=== PATIENT | male | born 1995 | race African-American/Black ===

== ENCOUNTER 2023-12-18 23:54 | Emergency (ER) | payer MEDICAID, SELFPAY ==
--- NOTE | ~2023-12-18 | XR_ITS ---
Thoracic spine: Clinical Indication: Back pain AP and lateral views were performed. No fracture is seen. There is normal alignment of the vertebrae. The intervertebral disc spaces appe ar normal. Paravertebral soft tissues appear normal. Impression: No significant abnormalities noted. Reviewed, dictated and finalized at [facility]. DENCE DIRECTOR Impression: No significant abnormalities noted.
[2023-12-18 23:56] VITALS: BP 115/62; PULSE 67; RESP 15; TEMP 36.5; O2SAT 100
[2023-12-19] VITALS: BP 115/62; PULSE 67; RESP 15; TEMP 36.5; O2SAT 100
[2023-12-19 00:55] LABS: Basophils Percent Auto 0.7 % (0.2-1.2); Eosinophils Absolute Auto 0.1 K/mm3 (0-0.3); Eosinophils Percent Auto 2.3 % (0-4.4); Hematocrit 40.3 % (42.0-52.0); Hemoglobin 12.7 g/dL (14.0-18.0); Immature Granulocyte Absolute 0.01 K/mm3 (0.00-0.031); Immature Granulocyte Percent A 0.2 % (0-0.5); Lymphocytes Absolute Auto 1.72 K/mm3 (0.9-3.2); Lymphocytes Percent Auto 30.4 % (18.3-44.2); Mean Corpuscular HGB Conc 31.5 g/dl (32-36); Mean Corpuscular Hemoglobin 32.2 pg (26-34); Mean Platelet Volume 9.1 fl (7.4-10.4); Monocytes Absolute Auto 0.4 K/mm3 (0.1-0.6); Monocytes Percent Auto 7.4 % (2.6-8.5); Neutrophils Absolute Auto 3.3 K/mm3 (1.3-6.7); Platelet Count Result 307 k/mm3 (150-375); Red Blood Count 3.95 M/mm3 (4.6-6.20); Red Cell Distribution Width 11.9 % (11.5-14.5); White Blood Count 5.7 K/mm3 (4.5-10.0)
[2023-12-19 01:05] LABS: Alanine Aminotransferase 22 U/L (6-50); Albumin Level 4.5 g/dL (3.5-5.1); Alkaline Phosphatase 53 U/L (38-126); Anion Gap 6 mmol/L (8-16); Aspartate Amino Transferase 32 U/L (17-59); Bilirubin,Total 0.7 mg/dL (0.2-1.3); Blood Urea Nitrogen 11 mg/dL (9-20); Calcium 9.7 mg/dL (8.4-10.2); Carbon Dioxide 30 mmol/L (22-30); Chloride 105 mmol/L (98-107); Estimated CRCL calculation 99 ml/min; Estimated Glomerular Filt Rate > 60; Ethanol < 10 mg/dL (<10); Glucose 85 mg/dL (65-110); Potassium 3.7 mmol/L (3.4-5.0); Sodium 141 mmol/L (137-145)
[2023-12-19 01:35] LABS: Influenza A QL RT-PCR Negative (Negative); Influenza B QL RT-PCR Negative (Negative); RSV RNA, RT-PCR Negative (Negative); SARS-CoV-2 RNA PCR Negative (Negative); Thyroid Stimulating Hormone Reflex 0.695 uIU/mL (0.465-4.68)
[2023-12-19 01:39] LABS: Appearance Urine Clear (Clear); Bilirubin Urine Negative (Negative); Blood Urine Negative (Negative); Color Urine Yellow (Yellow); Glucose Urine UA Negative (Negative); Ketones Urine Negative (Negative); Leukocyte Esterase Ur Negative LEU/UL (Negative); Nitrate Urine Negative (Negative); Protein Urine Negative (Negative)
[2023-12-19 01:41] LABS: Add Urine Microscopic? NO
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
[2023-12-19] MEDS: ACETAMINOPHEN 500 MG TABLET 1000 MG PO (01:58)
[2023-12-19] MEDS: IBUPROFEN 600 MG TABLET PO (01:59)
[2023-12-19 02:08] LABS: Amphetamine Screen Urine Negative (Negative); Barbiturate Screen Urine Negative (Negative); Benzodiazepines Screen Urine Negative (Negative); Cannabinoid Screen Urine Negative (Negative); Cocaine Screen Urine Negative (Negative); Methadone Screen Urine Negative (Negative); Opiate Screen Urine Negative (Negative); Phencyclidine Screen Urine Negative (Negative)
--- NOTE | 2023-12-19 03:25 | PC.NURSE ---
Called Crisis for consultation with no answer.
== END 2023-12-19 07:24 | disposition home or self-care (01) ==
PROVIDERS: Emergency Provider Student in an Organized Health Care Education/Training Program
DX: R45.851 Suicidal ideations (principal); D53.9 Nutritional anemia, unspecified; M54.6 Pain in thoracic spine; Z11.52 Encounter for screening for COVID-19; Z59.00 Homelessness unspecified; F20.9 Schizophrenia, unspecified; J45.909 Unspecified asthma, uncomplicated
CPT/HCPCS: 36415; 72070; 80053; 80307; 81003; 84443; 85025; 87637; 99284; A9270

== ENCOUNTER 2023-12-23 01:15 | Emergency (ER) | payer MEDICAID, SELFPAY ==
[2023-12-23 01:21] VITALS: BP 107/71; PULSE 80; RESP 16; TEMP 36.3; O2SAT 100
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
--- NOTE | 2023-12-23 02:45 | PC.NURSE ---
Patient arrived in ED wearing boots and hospital socks. Bilateral boots and socks taken off of patient's feet. White, pruney appearance to toes on both feet. Small wounds on left foot fourth and fifth toes, and large corn to first toe on left foot. No drainage, redness, swelling, or fever. Toes tender to touch. Patient asked this RN if he would be able to take a shower. toilet and laundry soap supervisor made aware.
[2023-12-23 03:49] VITALS: BP 110/64; PULSE 77; RESP 14; O2SAT 97
== END 2023-12-23 03:53 | disposition home or self-care (01) ==
PROVIDERS: Emergency Provider Emergency Medicine
DX: M79.672 Pain in left foot (principal); Z59.02 Unsheltered homelessness; J45.909 Unspecified asthma, uncomplicated
CPT/HCPCS: 99283

== ENCOUNTER 2024-01-29 20:13 | Emergency (ER) | payer MEDICAID, SELFPAY ==
--- NOTE | ~2024-01-29 | XR_ITS ---
EXAMINATION: XR lumbar spine 2-3V, XR thoracic spine 3V DATE: 01/29/2024 21:55 INDICATION: Back pain TECHNIQUE: 1. AP, lateral and lateral swimmer's views of the thoracic spine were obtained. 2. Anteroposterior and lateral views of the lumbar spine, and cone-down lateral view of the lumbosacr al junction were obtained. COMPARISON: Thoracic spine radiographs dated 12/19/2023 FINDINGS: Thoracic spine: Alignment is normal. Chronic mild anterior wedging of a midthoracic vertebral body, likely T6 and min imal anterior wedging at what is likely T7. Mild disc height loss at T3-T4 and T5-T6 through T8-T9. V isualized portion of the lungs are clear with no pleural effusion or pneumothorax. Cardiomediastinal silhouette is normal. Lumbar spine: A degree lumbar dextrocurvature. Sagittal alignment is normal. Minimal likely physiologic anterior we dging at T12 and L1. Disc heights are normal. Mild osteoarthritis at the bilateral sacral iliac joint s. IMPRESSION: 1. Mild thoracic spondylosis with chronic minimal to mild anterior wedging of a few mid and lower tho racic vertebral bodies. 2. 8 degree lumbar dextrocurvature 3. Mild bilateral sacroiliac osteoarthritis. Reviewed, dictated and finalized at location A. IMPRESSION: 1. Mild thoracic spondylosis with chronic minimal to mild anterior wedging of a few mid and lower thoracic vertebral bodies. 2. 8 degree lumbar dextrocurvature 3. Mild bilateral sacroiliac osteoarthritis.
[2024-01-29 20:15] VITALS: BP 130/75; PULSE 67; RESP 20; TEMP 36.3; O2SAT 99
--- NOTE | 2024-01-29 21:33 | ED.BACK ---
HPI - Back Pain/Injury General Chief Complaint: Back Pain/Injury Stated Complaint: back pain for 1 year Time Seen by Provider: 01/29/24 21:22 Source: patient Mode of arrival: ambulatory Limitations: no limitations History of Present Illness HPI Narrative: This is a 28 year old male that presents to the ER for mid to low back pain. No recent injuries or trauma. He has not taken anything for pain. Pain started earlier tonight. Denies numbness or weakness. Related Data Allergies Allergy/AdvReac Type Severity Reaction Status Date / Time shrimp Allergy Unknown Verified 01/29/24 20:19 Review of Systems Review of Systems: CONSTITUTIONAL: Denies fever SKIN: Denies rash MUSCULOSKELETAL: Reports back pain, joint pain, and myalgia. NEUROLOGIC: Denies numbness, or weakness. All systems reviewed & are unremarkable except as noted in HPI and below PMFSH Past Medical History Medical History Asthma Schizophrenia Social History Social History Other substance usage details: denies IVDU Current Housing: I Do Not Have Housing Exam Narrative: GENERAL: Well-appearing, well-nourished, and in no acute distress. HEAD: Normocephalic, atraumatic. EYES: EOMI. CHEST: Clear to auscultation. No respiratory distress. No wheezes rales or rhonchi HEART: Regular rate and rhythm. No murmur heard. Normal peripheral pulses. BACK: No midline spinal tenderness EXTREMITIES: Normal range of motion. No edema. SKIN: Warm, dry, no rash. NEURO: No focal deficits. Alert and oriented x3. Normal gait PSYCH: Normal mood and affect Course Course Emergency Course: Patient updated on workup and agrees with plan of care Vital Signs Vital signs: Vital Signs Temperature 97.4 F L 01/29/24 20:15 Pulse Rate 67 01/29/24 20:15 Respiratory Rate 01/29/24 20:15 Blood Pressure 130/75 01/29/24 20:15 Pulse Oximetry 99 01/29/24 20:15 Oxygen Delivery Room Air 01/29/24 20:15 Temperature 97.4 F L 01/29/24 20:15 Pulse Rate 67 01/29/24 20:15 Respiratory Rate 01/29/24 20:15 Blood Pressure 130/75 01/29/24 20:15 Pulse Oximetry 99 01/29/24 20:15 Oxygen Delivery Room Air 01/29/24 20:15 MDM - Back Pain/Injury MDM Narrative Medical decision making narrative: Patient presents to the emergency department for middle low back pain ongoing today. No recent injuries or trauma. Patient is neurologically intact. X-rays of the thoracic and lumbar spine show mild thoracic spondylosis, 8 degree lumbar dextrocurvature. Mild bilateral sacroiliac osteoarthritis. Patient was updated on his workup and agrees with plan of care. Instructed to rest, use ice/heat, continue [id number] pain medication as needed. He is to follow up with primary provider. He was given warnings to return to the ER Differential Diagnosis Differential diagnosis: Likely sciatica, strain of lumbar region, thoracic back pain and other (muscle spasm) Imaging Data Radiologist's impression: ITS Impressions Lumbar Spine X-Ray 01/29/24 22:04 IMPRESSION: 1. Mild thoracic spondylosis with chronic minimal to mild anterior wedging of a few mid and lower thoracic vertebral bodies. 2. 8 degree lumbar dextrocurvature 3. Mild bilateral sacroiliac osteoarthritis. Thoracic Spine X-Ray 01/29/24 22:04 IMPRESSION: 1. Mild thoracic spondylosis with chronic minimal to mild anterior wedging of a few mid and lower thoracic vertebral bodies. 2. 8 degree lumbar dextrocurvature 3. Mild bilateral sacroiliac osteoarthritis. Critical Care Time Critical Care Time Critical Care Time: No Discharge Plan Discharge Clinical Impression: Back pain Qualifiers: Back pain location: thoracic back pain Chronicity: acute Back pain laterality: midline Qualified Code(s): M54.6 - Pain in thoracic spine Patient Disposition: Home, Self-Care C
[2024-01-29] MEDS: ACETAMINOPHEN 500 MG TABLET 1000 MG PO (21:38)
[2024-01-29 22:26] VITALS: BP 126/95; PULSE 68; RESP 16; O2SAT 98
== END 2024-01-29 22:27 | disposition home or self-care (01) ==
PROVIDERS: Emergency Provider Physician Assistant
DX: M54.6 Pain in thoracic spine (principal); J45.909 Unspecified asthma, uncomplicated; M47.814 Spondylosis without myelopathy or radiculopathy, thoracic region; M46.1 Sacroiliitis, not elsewhere classified
CPT/HCPCS: 72072; 72100; 99283; A9270

== ENCOUNTER 2024-03-14 22:43 | Emergency (ER) | payer MEDICAID, SELFPAY ==
[2024-03-14 22:44] VITALS: BP 125/82; PULSE 79; RESP 18; TEMP 36.3; O2SAT 100
--- NOTE | 2024-03-14 22:55 | PC.NURSE ---
pt provided with sandwich, chips, peaches and drink at this time.
[2024-03-15 01:13] VITALS: BP 100/60; PULSE 63; RESP 16; O2SAT 98
[2024-03-15 01:56] LABS: Influenza A QL RT-PCR Negative (Negative); Influenza B QL RT-PCR Negative (Negative); RSV RNA, RT-PCR Negative (Negative); SARS-CoV-2 RNA PCR Negative (Negative)
--- NOTE | 2024-03-15 02:27 | ED.GENADULT ---
HPI - General Adult General Chief complaint: Upper Respiratory Infection Stated complaint: cough, homeless and hungry - ems request lizet Time Seen by Provider: 03/15/24 02:24 History of Present Illness HPI narrative: Patient is a 28-year-old male who presents to the emergency department this morning complaining a cough and URI symptoms. Patient admits that he has had this cough for a week and does admit that his symptoms are improving every day. He admitted to triage nurse that he is homeless and wants some food. He is currently denying any additional symptoms including fevers, chills, chest pain or shortness of breath. No additional symptoms or concerns at this time. Related Data Allergies Allergy/AdvReac Type Severity Reaction Status Date / Time shrimp Allergy Unknown Verified 01/29/24 20:19 Review of Systems Review of Systems: All systems are reviewed and are negative unless stated otherwise in the HPI. [facility] Past Medical History Medical History Asthma Schizophrenia Social History Social History Other substance usage details: denies IVDU Current Housing: I Do Not Have Housing Exam Narrative: General: Alert, awake, afebrile, in no acute distress. HEENT: PERRL, no rhinorrhea, no post nasal drip, oropharynx clear. Neck: Trachea midline, no JVD, no lymphadenopathy. Cardiovascular: Regular rate and rhythm, no murmurs, rubs or gallops, no peripheral edema. Respiratory: Clear to auscultation bilaterally, no tachypnea, no wheezing, no rhonchi, no rubs, no respiratory distress. Abdomen: Soft, nontender, nondistended, no rebound, no guarding, no peritoneal signs. Musculoskeletal: No joint swelling or deformity, normal muscle tone. Skin: No rashes or petechia, no signs of infection. Psychiatric: Alert and oriented, normal behavior and judgment for situation. Neurological: Alert and oriented to person, place, and time. Follows all commands. No focal deficits, speech is clear and fluent. Course Vital Signs Vital signs: Vital Signs Temperature 97.4 F L 03/14/24 22:44 Pulse Rate 79 03/14/24 22:44 Respiratory Rate 18 03/14/24 22:44 Blood Pressure 125/82 03/14/24 22:44 Pulse Oximetry 100 03/14/24 22:44 Oxygen Delivery Room Air 03/14/24 22:44 Temperature 97.4 F L 03/14/24 22:44 Pulse Rate 63 03/15/24 01:13 Respiratory Rate 16 03/15/24 01:13 Blood Pressure 100/60 03/15/24 01:13 Pulse Oximetry 98 03/15/24 01:13 Oxygen Delivery Room Air 03/15/24 01:13 Medical Decision Making MDM Narrative Medical decision making narrative: The patient was evaluated by myself in the emergency department. History is obtained from patient who is an independent historian and physical exam was performed. External medical records were reviewed at this time. Vitals was obtained were noted to be negative for influenza, RSV and COVID. Differential diagnosis considerations include acute viral syndrome including COVID/influenza and infectious process such as pneumonia. Comorbidities impacting this visit include none I have evaluated and discussed social determinants of health with the patient that could potentially impact subsequent diagnosis and treatment plans. On repeat assessment of the patient, reevaluation revealed that the patient is doing well and is in no acute distress. Patient symptoms have remained stable since he arrived to our emergency department. Patient was provided with food. Repeat vital signs were all reviewed and noted to be stable. Differential diagnosis and treatment plan were discussed with the patient at bedside. Patient agrees with discussion and after shared medical decision making agrees with discharge. All questions were answered to the patient's satisfaction. Patient will follow up with the PCP provided to him in 3-5 days. Patient was provided wi
== END 2024-03-15 02:39 | disposition home or self-care (01) ==
PROVIDERS: Physician Assistant; Emergency Provider Emergency Medicine
DX: J06.9 Acute upper respiratory infection, unspecified (principal); Z20.822 Contact with and (suspected) exposure to COVID-19; J45.909 Unspecified asthma, uncomplicated; F20.9 Schizophrenia, unspecified; Z59.02 Unsheltered homelessness
CPT/HCPCS: 87637; 99283

== ENCOUNTER 2024-03-20 02:00 | Emergency (ER) | payer MEDICAID, SELFPAY ==
[2024-03-20 01:59] VITALS: BP 105/76; PULSE 60; RESP 18; TEMP 37; O2SAT 100
--- NOTE | 2024-03-20 02:12 | ED.URI ---
HPI - URI/Sore Throat General Chief Complaint: Upper Respiratory Infection Stated Complaint: cough Time Seen by Provider: 03/20/24 02:06 History of Present Illness HPI Narrative: Patient presenting with cough, has been ongoing for few days, he is homeless and has come in here just a few days ago for the same thing. Denies other complaints Related Data Allergies Allergy/AdvReac Type Severity Reaction Status Date / Time shrimp Allergy Unknown Verified 01/29/24 20:19 Review of Systems Review of Systems: All systems reviewed & are unremarkable except as noted in HPI and below PMFSH Past Medical History Medical History Asthma Schizophrenia Social History Social History Other substance usage details: denies IVDU Current Housing: I Do Not Have Housing Exam Narrative: EXAMINATION OF ORGAN SYSTEMS/BODY AREAS: Constitutional: Vital signs per nursing GENERAL:[No acute distress, non-toxic appearing.] HEAD: Normal with no signs of head trauma. EYES: EOMI, conjunctiva normal ENT: Hearing grossly intact LUNGS: Nonlabored breathing. HEART: [Regular rate and rhythm] ABD: [Soft], [nontender to palpation] EXT: Normal range of motion SKIN: [No rashes or lesions.] NEURO: [Alert and oriented x 3. No gross focal sensory or strength deficits.] PSYCH: Normal affect Course Vital Signs Vital signs: Vital Signs Temperature 98.6 F 03/20/24 01:59 Pulse Rate 60 03/20/24 01:59 Respiratory Rate 18 03/20/24 01:59 Blood Pressure 105/76 03/20/24 01:59 Pulse Oximetry 100 03/20/24 01:59 Oxygen Delivery Room Air 03/20/24 01:59 Temperature 98.6 F 03/20/24 01:59 Pulse Rate 60 03/20/24 01:59 Respiratory Rate 18 03/20/24 01:59 Blood Pressure 105/76 03/20/24 01:59 Pulse Oximetry 100 03/20/24 01:59 Oxygen Delivery Room Air 03/20/24 01:59 MDM - URI/Sore Throat MDM Narrative Medical decision making narrative: Patient presents with a cough, he is homeless and denies other complaints other than wanting a place to sleep and something to eat, he is well-appearing here, no labored respirations, vital signs are normal, he is PERC negative, I have low concern for serious condition, he has swabs done recently that were normal and I do not feel he has any emergent evaluation or treatment necessary. He is given follow-up to primary care doctor and he can return for any further issues. Discharge Plan Discharge Clinical Impression: Homeless, Cough Patient Disposition: Home, Self-Care Condition: Stable Instructions: Antibiotic Form, Acute Cough (ED) Additional Instructions: Please follow-up with your doctor, you can always return to the ER if you feel worse. Prescriptions: No Action acetaminophen 500 mg capsule 1,000 mg PO Q6H PRN (Reason: pain) Qty: 20 0RF ibuprofen 200 mg capsule 600 mg PO Q8H PRN (Reason: pain) Qty: 20 0RF ibuprofen 800 mg tablet 800 mg PO TID PRN (Reason: pain) 7 Days Qty: 21 0RF acetaminophen 500 mg tablet 1,000 mg PO TID PRN (Reason: cha) 7 Days Qty: 42 0RF Follow-up/Referrals: PHYSICIAN,WELDER EXPERIMENTAL [Primary Care Provider] - Brayan Enamorado MD [Physician] - 2 Days
[2024-03-20 02:58] VITALS: BP 102/72; PULSE 78; RESP 16; O2SAT 99
== END 2024-03-20 02:59 | disposition home or self-care (01) ==
LOC: ANHED 02:18
PROVIDERS: Emergency Provider Emergency Medicine
DX: R05.9 Cough, unspecified (principal); Z59.00 Homelessness unspecified; J45.909 Unspecified asthma, uncomplicated
CPT/HCPCS: 99281

== ENCOUNTER 2024-07-04 23:36 | Emergency (ER) | payer MEDICAID, SELFPAY ==
[2024-07-04 23:42] VITALS: BP 116/74; PULSE 67; RESP 18; TEMP 36.6; O2SAT 100
--- NOTE | 2024-07-05 01:16 | ED.BACK ---
HPI - Back Pain/Injury General Chief Complaint: Back Pain/Injury Stated Complaint: Lower back pain Time Seen by Provider: 07/05/24 01:06 Source: patient and old records reviewed Mode of arrival: EMS Limitations: no limitations History of Present Illness HPI Narrative: Patient is a 28 y/o male, with PMH of schizophrenia, who presents to the ED via EMS with report of back pain. Patient is homeless. Asking for a sandwich. He reports he has had back pain for some time now. Reports remote injury. Has not taken anything for pain. No numbness, bowel or bladder incontinence, saddle anesthesia, urinary complaints. No SI/HI. No psychosis. Reportedly had been on risperidone in the past, but is non-compliant with this. Related Data Allergies Allergy/AdvReac Type Severity Reaction Status Date / Time shrimp Allergy Unknown Verified 01/29/24 20:19 Review of Systems Review of Systems: All systems reviewed & are unremarkable except as noted in HPI. All systems reviewed & are unremarkable except as noted in HPI and below PMFSH Past Medical History Medical History Asthma Schizophrenia Social History Social History Other substance usage details: denies IVDU Current Housing: I Do Not Have Housing Exam Narrative: GENERAL: Mildly unkempt, thin, non-toxic, in no acute distress. Moving easily on stretcher, resting comfortably in multiple different positions. HEAD: Normocephalic, atraumatic. RESPIRATORY: Airway patent, respirations nonlabored. CARDIOVASCULAR: Regular rate and rhythm MUSCULOSKELETAL: Moves all extremities. No gross deformities. Diffuse nonfocal tenderness throughout lumbar and thoracic region. No appreciable midline spinal tenderness. No palpable bony deformities. SKIN: Warm, dry, normal color. NEURO: Alert. Speech clear. Cranial nerves II-XII grossly intact. No ataxic movements. PSYCHIATRIC: slightly flat affect. Normal interaction. Course Vital Signs Vital signs: Vital Signs Temperature 97.9 F 07/04/24 23:42 Pulse Rate 67 07/04/24 23:42 Respiratory Rate 18 07/04/24 23:42 Blood Pressure 116/74 07/04/24 23:42 Pulse Oximetry 100 07/04/24 23:42 Temperature 97.9 F 07/04/24 23:42 Pulse Rate 67 07/04/24 23:42 Respiratory Rate 18 07/04/24 23:42 Blood Pressure 116/74 07/04/24 23:42 Pulse Oximetry 100 07/04/24 23:42 MDM - Back Pain/Injury MDM Narrative Medical decision making narrative: Patient?s pain is positional and localized to paraspinal muscles without signs of cord compression or cauda equina. Normal neurologic exams. No red flag symptoms. No symptoms or signs to suggest pain is referred from abdominal or source. Patient resting comfortably. He is able to move around on stretcher easily. He does not appear in any distress. No significant focal areas of pain on exam. Has been seen in our ED for similar vague back pain several different times. Patient ambulates with a steady gait and is felt to be a reasonable candidate for continued outpatient management. Given Toradol, Tylenol, Flexeril in the ED. Given something to eat. Will be discharged. Will discharge with Tylenol, ibuprofen, lidocaine patches and PCP follow-up. Patient was also given numerous resources on homeless shelters, food pantry, housing assistance. Given return precautions. Discharged in stable condition. Medical Records Attestation: I reviewed the patient's medical records. Discharge Plan Discharge Clinical Impression: Homelessness Strain of lumbar region Qualifiers: Encounter type: initial encounter Qualified Code(s): S39.012A - Strain of muscle, fascia and tendon of lower back, initial encounter Patient Disposition: Home, Self-Care Condition: Stable Instructions: Antibiotic Form, Acute Low Back Pain (ED), Lower Back Exercises (ED) Sincere
[2024-07-05] MEDS: CYCLOBENZAPRINE HCL 5 MG TABLET PO (01:25)
[2024-07-05] MEDS: ACETAMINOPHEN 500 MG TABLET 1000 MG PO (01:25)
[2024-07-05] MEDS: KETOROLAC (*BKC) 60 MG/2 ML VIAL IM (01:25)
== END 2024-07-05 02:40 | disposition home or self-care (01) ==
LOC: ANHED 07-05 01:32
PROVIDERS: Emergency Provider Physician Assistant
DX: S39.012A Strain of muscle, fascia and tendon of lower back, initial encounter (principal); J45.909 Unspecified asthma, uncomplicated; F20.9 Schizophrenia, unspecified; Z59.00 Homelessness unspecified; X58.XXXA Exposure to other specified factors, initial encounter
CPT/HCPCS: 96372; 99283; A9270; J1885

== ENCOUNTER 2025-08-20 13:51 | Emergency (ER) | payer MEDICAID, SELFPAY ==
[2025-08-20 13:51] VITALS: BP 105/62; PULSE 90; RESP 18; TEMP 36.8; O2SAT 100
--- NOTE | 2025-08-20 14:06 | ED_ITS ---
[facility] - General Adult General Chief complaint: Unspecified Stated complaint: illness Time Seen by Provider: 08/20/25 13:54 History of Present Illness HPI narrative: 29-year-old male with history of homelessness and depression presenting to the emergency department via EMS. Patient just states he does not feel well and is depressed. States he has suicidal thoughts. Patient states he has been using meth and alcohol recently but no other recent health concerns. Denies any injuries. States he just does not feel well and wants somebody to talk to about his depression. No definite plan. Related Data Allergies Allergy/AdvReac Type Severity Reaction Status Date / Time shrimp Allergy Unknown Verified 01/29/24 20:19 Review of Systems 2 Review of Systems: As reviewed above in HPI [facility] Past Medical History Medical History Schizophrenia Asthma Social History Social History Other substance usage details: denies IVDU Current Housing: I Do Not Have Housing Exam 2 Narrative: GENERAL: [Well-appearing, well-nourished, and in no acute distress.] HEAD: [Normocephalic, atraumatic.] EYES: [PERRLA and EOMI.] ENT: Nares clear, no rhinorrhea or epistaxis. Mucous membranes moist. NECK: Supple. CHEST: [Clear to auscultation. No respiratory distress.] HEART: [Regular rate and rhythm]. No murmur heard. [Normal peripheral pulses.] ABDOMEN: [Soft, nondistended], [nontender], [No rigidity or guarding] EXTREMITIES: Normal range of motion. [No edema.] SKIN: Warm, dry, no rash. NEURO: [No focal deficits]. Alert and oriented [x3.] PSYCH: Suicidal ideation but no plan. Flat affect Course Vital Signs Vital signs: Vital Signs Temperature 36.8 C 08/20/25 13:51 Pulse Rate 90 08/20/25 13:51 Respiratory Rate 18 08/20/25 13:51 Blood Pressure 105/62 08/20/25 13:51 Pulse Oximetry 100 08/20/25 13:51 Oxygen Delivery Room Air 08/20/25 13:51 Temperature 36.8 C 08/20/25 13:51 Pulse Rate 101 H 10/25/25 16:03 Respiratory Rate 15 08/20/25 16:03 Blood Pressure 115/75 08/20/25 16:03 Pulse Oximetry 100 08/20/25 16:03 Oxygen Delivery Room Air 08/20/25 13:51 Medical Decision Making MDM Narrative Medical decision making narrative: 29-year-old male with history of homelessness and depression presenting to the emergency department via EMS. Patient just states he does not feel well and is depressed. States he has suicidal thoughts. Patient states he has been using meth and alcohol recently but no other recent health concerns. Denies any injuries. States he just does not feel well and wants somebody to talk to about his depression. No definite plan. Patient has an unremarkable physical exam with normal vital signs. He is expressing suicidal thoughts but no plan. Will obtain psychiatric clearance laboratory studies. He has no urgent or emergent concerns based on history or physical exam. Will have crisis evaluate him upon completion of workup. Mild hypokalemia repleted with oral potassium. Otherwise unremarkable labs. Urine drug screen shows methamphetamines and marijuana which he readmitted to. Hemodynamically stable. Medically stable and cleared for psychiatric evaluation and disposition. Crisis has evaluated the patient and he does not need psychiatric hospitalization. Safety plan for discharge. Medical Records Medical records reviewed: Yes I reviewed the external patient's medical records. Vital Signs Vital Signs: Vital Signs Temperature 36.8 C 08/20/25 13:51 Pulse Rate 90 08/20/25 13:51 Respiratory Rate 18 08/20/25 13:51 Blood Pressure 105/62 08/20/25 13:51 Pulse Oximetry 100 08/20/25 13:51 Oxygen Delivery Room Air 08/20/25 13:51 Temperature 36.8 C 08/20/25 13:51 Pulse Rate 101 H 08/20/25 16:03 Respiratory Rate 15 08/20/25 16:03 Blood Pressure 115/75 08/20/25 16:03 Pulse Oximetry 100 08/20/25 16:03 Oxygen Delivery Room Air 08/20/25 13:51 Lab Data Lab results reviewed: Yes I reviewed the patient's lab results. 08/20/25 14:16 08/20/25 14:16 Labs: Lab Results 08/20/25 08/20/25 08/20/25 Range/Units 14:16 14:20 14:54 WBC 6.2 (4.5-10.0) K/mm3 RBC 4.11 L (4.6-6.20) M/mm3 Hgb 13.0 L (14.0-18.0) g/dL Hct 39.3 L (42.0-52.0) % MCV 95.6 (80-100) fl MCH 31.6 (26-34) pg MCHC 33.1 (32-36) g/dl RDW 12.1 (11.5-14.5) % Plt Count 298 (150-375) k/mm3 MPV 8.2 (7.4-10.4) fl Immature Gran % (Auto) 0.3 (0-0.5) % Neut % (Auto) 48.1 (45.5-73.1) % Lymph % (Auto) 40.6 (18.3-44.2) % [place] % (Auto) 7.3 (2.6-8.5) % Eos % (Auto) 3.4 (0-4.4) % Baso % (Auto) 0.3 (0.2-1.2) % Lymph # (Auto) 2.52 (0.9-3.2) K/mm3 [place] # (Auto) 0.5 (0.1-0.6) K/mm3 Eos # (Auto) 0.2 (0-0.3) K/mm3 Baso # (Auto) 0.0 (0.0-0.1) K/mm3 Abs Immat Gran (auto) 0.02 (0.00-0.031) K/mm3 Absolute Neuts (auto) 3.0 (1.3-6.7) K/mm3 Absolute Nucleated RBC 0.000 (0.0-0.012) K/mm3 Nucleated RBC % 0.0 (0.0-0.2) % Sodium 138 (137-145) mmol/L Potassium 3.2 L (3.4-5.0) mmol/L Chloride 100 (98-107) mmol/L Carbon Dioxide 28 (22-30) mmol/L Anion Gap 10 (4-12) mmol/L BUN 13 (9-20) mg/dL Creatinine 0.84 (0.7-1.3) mg/dL Estim Creat Clear Calc 0 ml/min Estimated GFR > 60 (59 - ) Glucose 77 (65-110) mg/dL Calcium 9.0 (8.4-10.2) mg/dL Total Bilirubin 0.7 (0.2-1.3) mg/dL AST 92 H (17-59) U/L ALT 43 (6-50) U/L Alkaline Phosphatase 64 (38-126) U/L Total Protein 7.6 (6.3-8.2) g/dL Albumin 4.3 (3.5-5.1) g/dL TSH (Reflex) 0.503 (0.465-4.68) uIU/mL Urine Color Yellow (Yellow) Urine Appearance Clear (Clear) Urine pH 5.5 (5.0-9.0) Ur Specific [place] 1.017 (1.001-1.035) Urine Protein Negative (Negative) mg/dL Urine Glucose (UA) Negative (Negative) mg/dL Urine Ketones Trace H (Negative) mg/dL Ur Blood (Man) Negative (Negative) Urine Nitrate Negative (Negative) Urine Bilirubin Negative (Negative) Urine Urobilinogen 1.0 (<2.0) mg/dL Add Ur Microanalysis Reviewed Leukocyte Esterase Rfl 1+ H (Negative) SHARONDA/UL Urine RBC 0-2 (0-2) /hpf Urine WBC 0-5 (0-3) /hpf Ur Squamous Epith Cells None seen (Few) /hpf Urine Bacteria None seen /hpf Urine Casts 0-2 Urine Opiates Screen Negative (Negative) Urine Methadone Screen Negative (Negative) Ur Barbiturates Screen Negative (Negative) Ur Phencyclidine Scrn Negative (Negative) Ur Amphetamine Screen Positive A (Negative) U Benzodiazepines Scrn Negative (Negative) Urine Cocaine Screen Negative (Negative) U Cannabinoids Screen Positive A (Negative) Ethyl Alcohol 21 (<10) mg/dL SARS-CoV-2 RNA (RT-PCR) Negative (Negative) Discharge Plan Discharge Clinical Impression: Polysubstance abuse, Suicidal ideation Patient Disposition: Home Condition: Stable Instructions: Antibiotic Form Additional Instructions: Return with any emergent concerns Patient Language: Macedonian Prescriptions: No Action acetaminophen 500 mg capsule 1,000 mg PO Q6H PRN (Reason: pain) Qty: 20 0RF ibuprofen 200 mg capsule 600 mg PO Q8H PRN (Reason: pain) Qty: 20 0RF ibuprofen 800 mg tablet 800 mg PO TID PRN (Reason: pain) 7 Days Qty: 21 0RF acetaminophen 500 mg tablet 1,000 mg PO TID PRN (Reason: cha) 7 Days Qty: 42 0RF ibuprofen 600 mg tablet 600 mg PO Q6H PRN (Reason: pain) Qty: 20 0RF acetaminophen 500 mg capsule 1,000 mg PO Q6H PRN (Reason: pain) Qty: 20 0RF lidocaine 5 % adhesive patch,medicated 1 patch topical DAILY Qty: 15 0RF Rx Instructions: leave on most painful area for up to 12 hrs Follow-up/Referrals: PHYSICIAN,RACETRACK STEWARD [Primary Care Provider, Internal Medicine] Time of Disposition: 17:31
--- NOTE | 2025-08-20 14:15 | PC.NURSE ---
Per EDP pt does not need a sitter
[2025-08-20 14:24] LABS: Hematocrit 39.3 % (42.0-52.0); Hemoglobin 13.0 g/dL (14.0-18.0); Immature Granulocyte Percent A 0.3 % (0-0.5); Lymphocytes Absolute Auto 2.52 K/mm3 (0.9-3.2); Mean Corpuscular HGB Conc 33.1 g/dl (32-36); Mean Corpuscular Hemoglobin 31.6 pg (26-34); Mean Corpuscular Volume 95.6 fl (80-100); Nucleated Red Blood Cells Absolute Auto 0.000 K/mm3 (0.0-0.012); Nucleated Red Blood Cells Perc 0.0 % (0.0-0.2); Platelet Count Result 298 k/mm3 (150-375); Red Blood Count 4.11 M/mm3 (4.6-6.20); White Blood Count 6.2 K/mm3 (4.5-10.0)
[2025-08-20 14:37] LABS: Alanine Aminotransferase 43 U/L (6-50); Albumin Level 4.3 g/dL (3.5-5.1); Alkaline Phosphatase 64 U/L (38-126); Anion Gap 10 mmol/L (4-12); Aspartate Amino Transferase 92 U/L (17-59); Bilirubin,Total 0.7 mg/dL (0.2-1.3); Blood Urea Nitrogen 13 mg/dL (9-20); Calcium 9.0 mg/dL (8.4-10.2); Carbon Dioxide 28 mmol/L (22-30); Chloride 100 mmol/L (98-107); Estimated CRCL calculation 0 ml/min; Estimated Glomerular Filt Rate > 60; Glucose 77 mg/dL (65-110); Potassium 3.2 mmol/L (3.4-5.0); Sodium 138 mmol/L (137-145); Total Protein 7.6 g/dL (6.3-8.2)
[2025-08-20 15:01] LABS: SARS-CoV-2 RNA PCR Negative (Negative)
[2025-08-20 15:08] LABS: Thyroid Stimulating Hormone Reflex 0.503 uIU/mL (0.465-4.68)
[2025-08-20 15:16] LABS: Add Urine Microscopic? YES; Appearance Urine Clear (Clear); Glucose Urine UA Negative (Negative); Leukocyte Esterase Ur 1+ LEU/UL (Negative); Need Manual Microscopic Reviewed; Nitrate Urine Negative (Negative); Non Pathogenic Casts 0-2; Specific Grav Ur 1.017 (1.001-1.035)
[2025-08-20 15:54] LABS: Cannabinoid Screen Urine Positive (Negative)
[2025-08-20 16:03] VITALS: BP 115/75; PULSE 101; RESP 15; O2SAT 100
[2025-08-20] MEDS: POTASSIUM CHLORIDE 20 MEQ ER TABLET 40 MEQ PO (16:03)
[2025-08-20 18:07] VITALS: BP 124/85; PULSE 87; RESP 16; TEMP 36.6; O2SAT 100
== END 2025-08-20 18:09 | disposition home or self-care (01) ==
PROVIDERS: Emergency Provider Student in an Organized Health Care Education/Training Program
DX: R45.851 Suicidal ideations (principal); F19.10 Other psychoactive substance abuse, uncomplicated; E87.6 Hypokalemia; Z59.00 Homelessness unspecified; F32.A Depression, unspecified; F20.9 Schizophrenia, unspecified; J45.909 Unspecified asthma, uncomplicated; Z20.822 Contact with and (suspected) exposure to COVID-19
CPT/HCPCS: 36415; 80053; 80307; 81001; 82077; 84443; 85025; 87086; 87635; 99284; A9270

== ENCOUNTER 2025-08-20 23:32 | Emergency (ER) | payer MEDICAID, SELFPAY ==
[2025-08-20 23:32] VITALS: BP 125/105; PULSE 68; RESP 16; TEMP 36.4; O2SAT 100
--- NOTE | 2025-08-20 23:48 | ED.NAVMDI ---
HPI - Nausea/Vomiting/Diarrhea General Chief complaint: Nausea/Vomiting/Diarrhea Stated complaint: n/v Time Seen by Provider: 08/20/25 23:35 Source: patient and old records reviewed Mode of arrival: EMS Limitations: no limitations History of Present Illness HPI Narrative: Patient is a 29-year-old male, past medical history of schizophrenia, depression, who presents the ED via EMS with report of nausea, vomiting. Patient was seen in our ED earlier today for depression and passive suicidal ideation. Underwent medical clearance and was evaluated by crisis, obtained safety plan and was discharged home. Patient is currently homeless. He admitted to methamphetamine and alcohol use. Reports having intermittent nausea and vomiting over the past few weeks. States he has been to multiple hospitals and is kicked out before he is ready. Related Data Allergies Allergy/AdvReac Type Severity Reaction Status Date / Time shrimp Allergy Unknown Verified 01/29/24 20:19 Review of Systems Review of Systems: All systems reviewed & are unremarkable except as noted in HPI. All systems reviewed & are unremarkable except as noted in HPI and below PMFSH Past Medical History Medical History Schizophrenia Asthma Social History Social History Other substance usage details: denies IVDU Current Housing: I Do Not Have Housing Exam Narrative: GENERAL: Well appearing, thin, non-toxic, in no acute distress. HEAD: Normocephalic, atraumatic. RESPIRATORY: Airway patent, respirations nonlabored. CARDIOVASCULAR: Regular rate and rhythm MUSCULOSKELETAL: Moves all extremities. No gross deformities. SKIN: Warm, dry, normal color. NEURO: A&O X3. Speech clear. PSYCHIATRIC: Rapid speech, rambling thoughts. Normal interaction. Course Vital Signs Vital signs: Vital Signs Temperature 97.6 F 08/20/25 23:32 Pulse Rate 68 08/20/25 23:32 Respiratory Rate 16 08/20/25 23:32 Blood Pressure 125/105 H 08/20/25 23:32 Pulse Oximetry 100 08/20/25 23:32 Oxygen Delivery Room Air 08/20/25 23:32 Temperature 97.6 F 08/20/25 23:32 Pulse Rate 68 08/20/25 23:32 Respiratory Rate 16 08/20/25 23:32 Blood Pressure 125/105 H 08/20/25 23:32 Pulse Oximetry 100 08/20/25 23:32 Oxygen Delivery Room Air 08/20/25 23:32 MDM - Nausea/Vomiting/Diarrhea MDM Narrative Medical decision making narrative: Patient with history of schizophrenia, homelessness. Reported having nausea and vomiting. Seen in our ED here earlier today and had a benign workup. No indication to repeat labs at this time. No active vomiting. Vital signs are stable. Was evaluated by crisis, given safety plan instructions. Denying SI/HI currently. Asking for a sandwich, soda, and to chill for 5-10 minutes. Patient was given a meal. Will be discharged at this time. Hemodynamically stable. In no acute distress. Advised he can wait in the waiting room. Was given numerous resources for homeless shelters. Also given prescription for Zofran. Discharged in stable condition. Medical Records Attestation: I reviewed the patient's medical records. Discharge Plan Discharge Clinical Impression: Homelessness Nausea and vomiting Qualifiers: Vomiting type: unspecified Qualified Code(s): R11.2 - Nausea with vomiting, unspecified Patient Disposition: Home Condition: Stable Instructions: Antibiotic Form, Acute Nausea and Vomiting (ED) Additional Instructions: Use Zofran as needed for nausea. Utilize resources given to by crisis team today and homeless [facility] resources. Patient Language: Estonian Prescriptions: New ondansetron 4 mg tablet,disintegrating 4 mg PO Q8H PRN (Reason: nausea and vomiting) Qty: 10 0RF No Action acetaminophen 500 mg capsule 1,000 mg PO Q6H PRN (Reason: pain) Qty: 20 0RF ibuprofen 200 mg capsule 600 mg PO Q8H PRN (Reason: pain) Qty: 20 0RF ibuprofen 800 mg tablet 800 mg PO TID PRN (Reason: pain) 7 Days Qty: 21 0RF acetaminophen 500 mg tablet 1,000 mg PO TID PRN (Reason: cha) 7 Days Qty: 42 0RF ibuprofen 600 mg tablet 600 mg PO Q6H PRN (Reason: pain) Qty: 20 0RF acetaminophen 500 mg capsule 1,000 mg PO Q6H PRN (Reason: pain) Qty: 20 0RF lidocaine 5 % adhesive patch,medicated 1 patch topical DAILY Qty: 15 0RF Rx Instructions: leave on most painful area for up to 12 hrs Follow-up/Referrals: PHYSICIAN,VENEER TAPING MACHINE OPERATOR [Primary Care Provider, Internal Medicine] Time of Disposition: 23:50
== END 2025-08-21 00:22 | disposition home or self-care (01) ==
LOC: ANHED 23:59
PROVIDERS: Emergency Provider Physician Assistant
DX: R11.2 Nausea with vomiting, unspecified (principal); Z59.00 Homelessness unspecified; F20.9 Schizophrenia, unspecified; F32.A Depression, unspecified
CPT/HCPCS: 99283

== ENCOUNTER 2025-09-04 23:43 | Emergency (ER) | payer MEDICAID, SELFPAY ==
--- OUTSIDE RECORDS SUMMARY | 2022-12-18 18:00 | XMS_ITS | Continuity of Care Document ---
Author Organization [facility] Address [address] [place] [address] Phone Care Team Providers Care Escort Blind Name Role Phone Management, Case Unavailable Unavailable Procedures Procedure Date Alcohol and/or drug services; case manag ement [facility] , PER 15 MINUTES Alcohol and/or drug services; case manag ement Advance Directives Directive Yes / No Effective Date File Name No Information Encounters Encounter Description Practice Location Reason(s) For Visit Diagnoses Date Provider Providers Copied on Encounter [facility] , [address], [place], [place], [id number], tel:[phone] Assisted No Information Management Case. [address] [place] [address], [id number], . tel:[phone] [facility] , [address], [place], [place], [id number], tel:[phone] Assisted No Information Management Case. [address] [place] [address], [id number], . tel:[phone] [facility] , [address], [place], [place], [id number], tel:[phone] Assisted No Information Management Case. [address], [place], [id number], . tel:[phone] Family History Family Member Type Diagnosis Age At Onset No Information Payers Payer name Insurance type Covered green party ID Authoriza tion(s) No Information Social History Type Description Quantity Date Captured Comments Sex Male Smoking Status No Information Chief Complaint And Reason For Visit No Information Reason For Referral Reason For Referral No Information History Of Present Illness Encounter Date Complaint History Of Prese nt Illness No Information Functional Status Date Functional Assessmen t No Information Instructions Date Instruction Additional Infor mation No Information Assessments Type Assessment Date No Information Patient Care Teams Name Effective Dates (start - stop) Status Members No Information
[2025-09-04 23:43] VITALS: BP 129/96; PULSE 69; RESP 17; TEMP 36.4; O2SAT 100
--- NOTE | 2025-09-04 23:54 | ED.NAVMDI ---
HPI - Nausea/Vomiting/Diarrhea General Chief complaint: Nausea/Vomiting/Diarrhea Stated complaint: Vomiting x 2D Source: patient and EMS Mode of arrival: EMS Limitations: no limitations History of Present Illness HPI Narrative: This is a 29-year-old male with history of asthma it is currently homeless who presents to the ED via EMS for nausea, vomiting abdominal pain. Patient states that over the past couple days he is at epigastric abdominal pain with increasing nausea and vomiting. He states that he was taking the bus to come here but fell asleep on the bus he will cut the end line and walked over to the police station. There he was given a Sack lunch and his symptoms did improve but was still requesting a ride to the hospital so EMS was notified. He does have some remnant epigastric pain at this time that is similar to his GERD symptoms. Related Data Allergies Allergy/AdvReac Type Severity Reaction Status Date / Time shrimp Allergy Unknown Verified 09/04/25 23:51 Review of Systems Review of Systems: Gen.: Denies fevers or chills Eyes: Denies eye pain or visual change ENT: Denies congestion Respiratory: Denies shortness of breath or cough CV: Denies chest pain or palpitations GI: As per HPI denies burning, urgency, frequency or hematuria Musculoskeletal: Denies back pain or muscle pain Neuro: Denies numbness, tingling, weakness or focal weakness Skin: Denies rash Except as documented, all other systems reviewed and negative [facility] Past Medical History Medical History Schizophrenia Asthma Social History Social History Other substance usage details: denies IVDU Current Housing: I Do Not Have Housing Exam Narrative: APPEARANCE: No acute distress, nontoxic, resting in bed EYES: EOMI HEENT: Normocephalic, atraumatic, OMM RESPIRATORY: No respiratory distress Clear to auscultation bilaterally with no rhonchi wheezing or rales. CARDIOVASCULAR: Regular rate and rhythm without murmurs rubs or gallops. ABDOMINAL: Soft, nontender, nondistended, no rebound or guarding MUSCULOSKELETAl: Moves all extremities. No clubbing, cyanosis or edema. NEURO: Awake and alert. Following commands, speech normal, no focal deficits SKIN:: Warm, dry. No rashes lesions or abrasions PSYCHIATRIC: Normal affect/mood, Course Vital Signs Vital signs: Vital Signs Temperature 97.6 F 09/04/25 23:43 Pulse Rate 69 09/04/25 23:43 Respiratory Rate 17 09/04/25 23:43 Blood Pressure 129/96 H 09/04/25 23:43 Pulse Oximetry 100 09/04/25 23:43 Oxygen Delivery Room Air 09/04/25 23:43 Temperature 97.6 F 09/04/25 23:43 Pulse Rate 60 09/05/25 00:49 Respiratory Rate 18 09/05/25 00:49 Blood Pressure 123/85 09/05/25 00:49 Pulse Oximetry 100 09/05/25 00:49 Oxygen Delivery Room Air 09/04/25 23:43 MDM - Nausea/Vomiting/Diarrhea MDM Narrative Medical decision making narrative: 29-year-old male Presenting for nausea, vomiting abdominal pain. On initial evaluation patient was in no acute distress afebrile, hemodynamic stable. Differentials include but are not limited to: ACS, Cholecystitis, choledocolithiasis, GERD, PUD, Pancreatitis, SBO, Cancer, AAA Notable exam findings: Abdomen nontender, heart and lungs clear. Oropharynx clear. Patient had significant improvement of symptoms after a Sack lunch obtained from PD. Patient is homeless and had not eaten in a couple days. I suspect that his symptoms or most related to lack of food access. Additional workup beyond examination is not indicated at this time. He was given a GI cocktail, Zofran and additional food. He did have improvement of his symptoms. Patient was deemed appropriate for discharge at this time. Patient was given a prescription for Zofran and Pepcid. Patient was advised follow-up with their PCP in the next week for re-evaluation. Patient was agreeable to this plan. Given strict return precautions. Medical Records Attestation: I reviewed the patient's medical records. Discharge Plan Discharge Clinical Impression: Homeless Gastritis Qualifiers: Gastritis type: unspecified gastritis Chronicity: acute Gastritis bleeding: without bleeding Qualified Code(s): K29.00 - Acute gastritis without bleeding Patient Disposition: Home Condition: Stable Instructions: Antibiotic Form, Gastritis (ED) Additional Instructions: Take Pepcid and Zofran as prescribed. Follow-up with your PCP in the next week for re-evaluation. Return to the ED for any new or worsening symptoms. Patient Language: Bahraini Prescriptions: New famotidine [Pepcid] 20 mg tablet 20 mg PO DAILY Qty: 30 0RF ondansetron 4 mg tablet,disintegrating 4 mg PO Q8H PRN (Reason: nausea and vomiting) Qty: 14 0RF No Action acetaminophen 500 mg capsule 1,000 mg PO Q6H PRN (Reason: pain) Qty: 20 0RF ibuprofen 200 mg capsule 600 mg PO Q8H PRN (Reason: pain) Qty: 20 0RF ibuprofen 800 mg tablet 800 mg PO TID PRN (Reason: pain) 7 Days Qty: 21 0RF acetaminophen 500 mg tablet 1,000 mg PO TID PRN (Reason: cha) 7 Days Qty: 42 0RF ibuprofen 600 mg tablet 600 mg PO Q6H PRN (Reason: pain) Qty: 20 0RF acetaminophen 500 mg capsule 1,000 mg PO Q6H PRN (Reason: pain) Qty: 20 0RF lidocaine 5 % adhesive patch,medicated 1 patch topical DAILY Qty: 15 0RF Rx Instructions: leave on most painful area for up to 12 hrs ondansetron 4 mg tablet,disintegrating 4 mg PO Q8H PRN (Reason: nausea and vomiting) Qty: 10 0RF Follow-up/Referrals: Norma Nunez DO [Physician, Family Practice] PHYSICIAN,SUPERINTENDENT CUSTODIAN JANITOR [Primary Care Provider, Internal Medicine]
[2025-09-04] MEDS: BELLADONNA ALK/PHENOB ELIX 10 ML, MAG HYDROX/ALUMINUM HYD/SIMETH 30 ML, LIDOCAINE 2% VI... PO (23:55)
[2025-09-04] MEDS: ONDANSETRON HCL ODT 4 MG TABLET PO (23:55)
[2025-09-05 00:49] VITALS: BP 123/85; PULSE 60; RESP 18; O2SAT 100
== END 2025-09-05 00:50 | disposition home or self-care (01) ==
PROVIDERS: Emergency Provider Student in an Organized Health Care Education/Training Program
DX: K29.00 Acute gastritis without bleeding (principal); J45.909 Unspecified asthma, uncomplicated; K21.9 Gastro-esophageal reflux disease without esophagitis; Z59.00 Homelessness unspecified
CPT/HCPCS: 99283; A9270